=== PATIENT | female | born 1935 | race African-American/Black ===

== ENCOUNTER 2019-01-28 15:44 | Inpatient (IN) | payer MEDICARE ==
[~2019-01-28] VITALS: Ht 160 cm; Wt 82.8 kg
[~2019-01-28 15:44] MED LIST: AMLO5TAB15 PO; ASPI-264 PO; FURO40TA4 PO; GLYB5TAB8 PO; LEVO25TA6 PO; LOSA-39; LOVA40TA72 PO; METO-169; OMEP20CA74 PO; POTA-220; RAMI10CA38; TRAM50TA2
[2019-01-28 17:44] LABS: Basophils # (auto) 0.1 uL; Basophils % (auto) 2.4 % (0.0-2.0); Eosinophils # (auto) 0.1 uL; Eosinophils % (auto) 2.9 % (0.0-7.0); Hematocrit 37.9 % (36.0-46.0); Hemoglobin 12.6 g/dL (12.2-16.2); Lymphocytes # (auto) 1.1 uL; Lymphocytes % (auto) 27.1 % (10.0-50.0); Mean Corpuscular Hemoglobin 32.8 pg (28.0-32.0); Mean Corpuscular Hgb Conc. 33.1 g/dL (32.0-36.0); Mean Corpuscular Volume 99.1 fL (80.0-100.0); Monocytes # (auto) 0.6 uL; Neutrophils # (auto) 2.1 uL; Neutrophils % (auto) 51.6 % (37.0-80.0); Nucleated Red Blood Cells % 0.2 %; Platelet Count (auto) 158 10^3/uL (140-450); Red Blood Cells 3.83 10^6/uL (4.0-5.20); Red Cell Distribution Width 14.2 % (11.8-14.3)
[2019-01-28 17:56] LABS: Alanine Aminotransferase 15 U/L (13-56); Albumin 3.4 g/dL (3.4-5.0); Anion Gap 9 (5-15); Aspartate Aminotransferase 15 U/L (15-37); BUN/Creatinine Ratio 17.9; Blood Urea Nitrogen 35 mg/dL (7-18); Calcium 9.3 mg/dL (8.5-10.1); Carbon Dioxide 23 mmol/L (21-32); Chloride 108 mmol/L (98-107); GFR African American 32 mL/min; GFR Non-African American 26 mL/min; Glucose 83 mg/dL (74-106); Magnesium 2.5 mg/dL (1.6-2.6); Potassium 4.8 mmol/L (3.5-5.1); Sodium 140 mmol/L (136-145)
[2019-01-28 17:59] LABS: INR 1.01 (0.9-1.15); Partial Thromboplastin Time 24.8 sec (23.64-32.05)
[2019-01-28 18:01] LABS: Alkaline Phosphatase 98 U/L (45-117); Bilirubin, Total 0.6 mg/dL (0.2-1.0); Total Protein 7.6 g/dL (6.4-8.2)
[2019-01-28] MEDS ORDERED: ONDANSETRON HCL 4 MG/2 ML VIAL IV PRN (19:15)
[2019-01-28] MEDS ORDERED: ACETAMINOPHEN 500 MG TAB PO PRN (19:15)
[2019-01-28] MEDS ORDERED: TEMAZEPAM 15 MG CAP PO PRN (19:15)
[2019-01-28] MEDS ORDERED: DEXTROSE (50%) 50ML SYRG IV PRN (19:15)
[2019-01-28] MEDS ORDERED: LACTULOSE 20Gm/30ML SOLN PO PRN (19:15)
[2019-01-28] MEDS ORDERED: traMADol HCL 50 MG TAB PO PRN (19:15)
[2019-01-28] MEDS ORDERED: NITROGLYCERIN 0.4 MG SL TAB SL PRN (19:15)
[2019-01-28] MEDS ORDERED: MORPHINE SULF INJ 2 MG/ML SYRINGE 1ML IV PRN (19:15)
[2019-01-28 20:54] VITALS: BP 154/80
--- NOTE | 2019-01-28 20:54 | NUR ---
Telemetry admit from [facility] admitted to Telemetry unit after SBAR received. Patient oriented to Benjy Quevedo, primary RN, unit, room, bed, and unit policies regarding patient care and visiting hours. Patient now on continuous telemetry monitoring, tele box # [id number] and telemetry reading on arrival to unit is sinus rhythm. Patient placed on bedside oxygen, weighed by bedscale and encouraged to call if they need something. All questions and concerns addressed, patient verbalized understanding.
[2019-01-28] MEDS: ACCU-CHEK COMFORT CURVE STRIP VI SCH (21:32)
[2019-01-28] MEDS: InsuLIN REG 1unit/0.01ml Soln (100units/ml) SC SCH (21:32)
[2019-01-28 22:00] VITALS: BP 154/80
[2019-01-28 22:00] LABS: Urine Bacteria MANY /hpf (None Seen); Urine Blood TRACE /uL (Negative); Urine Hyaline Cast MANY /lpf (0 - 2); Urine Mucus FEW (None Seen); Urine Specific Gravity 1.022 (1.001-1.035); Urine WBC 449 /hpf (0 - 5); Urine WBC Clumps PRESENT /hpf (None Seen)
[2019-01-28] MEDS ORDERED: ATORVASTATIN 20 MG TAB PO SCH (22:00)
[2019-01-28] MEDS ORDERED: HYDR25TA4 PO (22:22)
[2019-01-28] MEDS ORDERED: ACET-1156 PO (22:22)
[2019-01-29] MEDS ORDERED: SPIR50TA5 PO (00:21)
[2019-01-29] MEDS ORDERED: MELO1TAB56 PO (00:21)
[2019-01-29 05:24] VITALS: BP 153/68
[2019-01-29] MEDS: ACCU-CHEK COMFORT CURVE STRIP VI SCH ×4 (06:43→22:00)
[2019-01-29] MEDS: InsuLIN REG 1unit/0.01ml Soln (100units/ml) SC SCH ×4 (06:44→22:00)
--- NOTE | 2019-01-29 07:20 | NUR ---
Patient stable, no complaints of pain. Endorsed care to Greer DERAS.
--- NOTE | 2019-01-29 08:34 | NUR ---
PT REPORTS SHE IS NOT EATING HER BREAKFAST. SHE REPORTS, "IT'S DISGUSTING." ASKED PATIENT WHAT SHE WOULD LIKE AN ALTERNATIVE, PT REPORTS SHE WANTS, "EGGS AND PIERRE OR SAUSAGE AND EGGS, SOMETHING WITH SOME MEAT OR I'M WALKING OUT OF HERE." CALLED FOOD AND NUTRITION AND LEFT MESSAGE, REPORTED PT WOULD LIKE ALTERNATE TRAY WITH EITHER PIERRE OR SAUSAGE AND EGGS, OR A HEALTHY ALTERNATIVE. WILL CONTINUE TO MONITOR.
[2019-01-29 09:00] VITALS: BP 138/86
[2019-01-29] MEDS: ASPirin 81 mg TAB PO SCH (09:47)
--- NOTE | 2019-01-29 09:51 | NUR ---
PT REFUSING MORNING MEDICATIONS AND ACCUCHECKS. PT REPORTS SHE IS NOT DIABETIC. PT REPORTS SHE WANTS HER HOME MEDICATIONS HERE IN THE HOSPITAL, NOT NEW MEDICATIONS. EDUCATED PT ON NEW MEDICATIONS AND THIER PURPOSE, PT REFUSED. PT WANTS TO CALL PCP AND ASK ABOUT NEW MEDICATIONS.
[2019-01-29] MEDS ORDERED: ENOXAPARIN SOD 30 MG/0.3 ML SYRINGE SC SCH (10:00)
[2019-01-29] MEDS ORDERED: PANTOPRAZOLE 40 MG TAB PO SCH (10:00)
--- NOTE | 2019-01-29 13:24 | NUR ---
DR HOLLOWAY SAW PATIENT AND DISCUSSED POC. WAITING ON CARDIO CONSULT. ASKED MEDIA CONSULTANT TO CALL IN CARDIO CONSULT, WILL CONTINUE TO MONITOR.
[2019-01-29 13:32] VITALS: BP 150/74
--- NOTE | 2019-01-29 17:00 | NUR ---
Pt reports she wants her blood pressure medications. Called PBX and paged Dr. Rolle to request medications. Awaiting call back. Pt irritated Metal Handler has not come yet, pt educated Metal Handler will be here today or tomorrow depending on how many patient's he has. Pt reports she will will walk out tomorrow morning if not seen by then.
--- NOTE | 2019-01-29 17:14 | NUR ---
PAGED HOSPITALIST TO REQUEST PT BPO MEDS, PAGED DR VEGA TO REQUEST HE SEE PATIENT. CHARGE NURSE NOTIFIED PT IS IRRITATED.
[2019-01-29] MEDS ORDERED: LOSARTAN POTASSIUM 50 MG TAB PO ONE (17:15)
[2019-01-29] MEDS: LEVOTHYROXINE SODIUM 25 MCG TAB PO ONE ×2 (17:15→17:46)
[2019-01-29] MEDS ORDERED: amLODIPine BESYLATE 5 MG TAB PO ONE (17:15)
--- NOTE | 2019-01-29 17:19 | NUR ---
DR VEGA CALLED BACK, HE REPORTS HE HAS A FEW MORE PATIENT'S BUT WILL TRY AND SEE PATIENT TONIGHT. DR HOLOLWAY PUT IN ORDERS FOR BP MEDS, PT NOTIFIED, WILL CONTINUE TO MONITOR.
[2019-01-29 17:34] VITALS: BP 134/81
--- NOTE | 2019-01-29 17:53 | NUR ---
PT REFUSED SYNTHROID, SHE REPORTS SHE IS ONLY SUPPOSED TO TAKE IT IN THE MORNING TIME.
--- NOTE | 2019-01-29 19:40 | NUR ---
Opening Shift Note Assumed care of patient, awake and alert. Son Lionel at bedside. Patient and family expressed irritation that manager placement has not seen patient yet. Dayshift pediatric acute care unit nurse Sheeba Vera at this time for update on when he is coming to see patient. Charge nurse Marisol DERAS made aware of patient and family's concerns at this time. No S/S of distress/SOB or pain. Instructed on POC and to call for assist PRN, will continue to monitor for changes Q1hr and PRN.
--- NOTE | 2019-01-29 19:48 | NUR ---
Spoke with Dr. Vera Received phone call from Dr. Vera. Doctor made aware of patient and family's concerns. Dr. Vera states he "will be there with the hour". Will inform patient and patient's family and continue to monitor.
--- NOTE | 2019-01-29 19:57 | NUR ---
Blood Pressure Reassessment Blood pressure 166/57. Patient just finished ambulating from bathroom to bed and is still agitated that cellophaner is not available at this time. Will continue to monitor.
--- NOTE | 2019-01-29 20:07 | NUR ---
Dr. Vera at bedside Esthetics Instructor at bedside to discuss plan of care with patient and family.
--- NOTE | 2019-01-29 20:44 | NUR ---
Medications From Nuclear Scientist Dr. Vera reviewed patient's home medications, new orders received for Amlodipine 5mg BID, Levothyroxine 50 mcg daily, Losartan 50 mg daily, Metoprolol Succinate 50 mg BID, Prilosec 40 mg BID, Spirolactone 25 mg daily, and Lovastatin [address] Vera did not want to continue Hydrochlorothiazide or Potassium at this time. Dr. Vera wanted all new orders to start tomorrow and requested to be called if patient's ystolic blood pressure is less than 110. Doctor also wanted CMP, informed that there were orders for BMP and CBC at 04:00, doctor stated, "Ok, that's fine." All orders read back and verified, will implement and continue to monitor patient.
--- NOTE | 2019-01-29 21:15 | NUR ---
Dr. Vera Paged Lovastatin not available, patient already has orders for Lipitor 10 mg. Will clarify with Dr. Vera and continue to monitor patient.
--- NOTE | 2019-01-29 21:19 | NUR ---
Dr. Vera returned call Received call from Dr. Vera, new order received for Lipitor 40 mg at hour of sleep. Order read back and verified, will implement and continue to monitor patient.
[2019-01-29 21:59] VITALS: BP 149/70
[2019-01-29] MEDS ORDERED: amLODIPine BESYLATE 5 MG TAB PO SCH (22:00)
[2019-01-29] MEDS ORDERED: ATORVASTATIN 20 MG TAB PO SCH (22:00)
[2019-01-30 05:00] VITALS: BP 149/73
[2019-01-30] MEDS: ACCU-CHEK COMFORT CURVE STRIP VI SCH ×2 (06:39→11:30)
[2019-01-30 06:49] LABS: Basophils # (auto) 0.1 uL; Basophils % (auto) 1.7 % (0.0-2.0); Eosinophils # (auto) 0.1 uL; Eosinophils % (auto) 3.4 % (0.0-7.0); Hematocrit 36.4 % (36.0-46.0); Hemoglobin 12.3 g/dL (12.2-16.2); Lymphocytes # (auto) 1.2 uL; Lymphocytes % (auto) 34.4 % (10.0-50.0); Mean Corpuscular Hgb Conc. 33.9 g/dL (32.0-36.0); Mean Corpuscular Volume 97.5 fL (80.0-100.0); Monocytes # (auto) 0.5 uL; Monocytes % (auto) 14.4 % (0.0-12.0); Neutrophils # (auto) 1.6 uL; Neutrophils % (auto) 46.1 % (37.0-80.0); Nucleated Red Blood Cells % 0.1 %; Platelet Count (auto) 143 10^3/uL (140-450); Red Blood Cells 3.74 10^6/uL (4.0-5.20); Red Cell Distribution Width 14.1 % (11.8-14.3); White Blood Cell 3.4 10^3/uL (4.4-10.8)
[2019-01-30 07:00] LABS: Calcium 9.4 mg/dL (8.5-10.1); Potassium 4.2 mmol/L (3.5-5.1)
[2019-01-30] MEDS ORDERED: LEVOTHYROXINE SODIUM 25 MCG TAB PO SCH (07:00)
[2019-01-30] MEDS: InsuLIN REG 1unit/0.01ml Soln (100units/ml) SC SCH ×2 (07:00→11:30)
[2019-01-30] MEDS ORDERED: LEVOTHYROXINE SODIUM 50 MCG TAB PO SCH (07:00)
--- NOTE | 2019-01-30 07:00 | NUR ---
Closing Note Patient lying in bed, awake and alert. No s/s of distress. Care endorsed to dayshift RN.
[2019-01-30 07:02] LABS: BUN/Creatinine Ratio 22.4
--- NOTE | 2019-01-30 07:40 | NUR ---
OPENING NOTE Assumed care of patient from NOC RN. Patient resting in bed with eyes closed, even rise and fall of chest noted. No S/S of distress/SOB or pain. Bed in lowest, locked position with side rails up x2. Fall precautions in place and call light within reach. Will continue to monitor for changes Q1hr and PRN.
[2019-01-30 09:00] VITALS: BP 136/78
[2019-01-30] MEDS ORDERED: amLODIPine BESYLATE 5 MG TAB PO SCH ×2 (10:00)
[2019-01-30] MEDS ORDERED: METOPROLOL SUCCINATE XL 50 MG TAB PO SCH (10:00)
[2019-01-30] MEDS ORDERED: LOSARTAN POTASSIUM 50 MG TAB PO SCH ×2 (10:00)
[2019-01-30] MEDS ORDERED: OMEPRAZOLE 20MG/10ML ORAL SUSP PO SCH (10:00)
[2019-01-30] MEDS ORDERED: SPIRONOLACTONE 25 MG TAB PO SCH (10:00)
[2019-01-30] MEDS: ASPirin 81 mg TAB PO SCH (11:01)
--- NOTE | 2019-01-30 11:50 | NUR ---
ACCUCHECK Patient refused accucheck, states "I'm not diabetic so there's no need for it".
--- NOTE | 2019-01-30 12:40 | NUR ---
AT BEDSIDE Dr. Covarrubias at patient's bedside.
--- NOTE | 2019-01-30 14:45 | NUR ---
DISCHARGE Discharge instructions given as ordered. Encouraged to follow up with PMD and Cardiology, Dr. Vera, as instructed. All questions and concerns addressed. Patient verbalized understanding. Medication reconciliation form completed and copy given to patient. . IV removed with catheter intact and pressure dressing applied. Telemetry unit returned to ICU. Patient ambulated to vehicle using FWW with all personal belongings, accompanied by family member. No distress noted at time of departure.
[2019-01-31] MEDS ORDERED: ENOXAPARIN SOD 40 MG/0.4 ML SYRINGE SC SCH (10:00)
== END 2019-01-30 14:45 | disposition home or self-care (01) | DRG 310 ==
LOC: ER 15:44 → TELE-WESTW 15:45
PROVIDERS: ADMIT Internal Medicine; ATTEND Internal Medicine Nephrology
DX: I49.5 Sick sinus syndrome (principal); I12.9 Hypertensive chronic kidney disease with stage 1 through stage 4 chronic kidney disease, or unspecified chronic kidney disease; N18.3 Chronic kidney disease, stage 3 (moderate); E11.22 Type 2 diabetes mellitus with diabetic chronic kidney disease; E03.9 Hypothyroidism, unspecified; R82.71 Bacteriuria; E78.5 Hyperlipidemia, unspecified; Z96.643 Presence of artificial hip joint, bilateral; Z96.651 Presence of right artificial knee joint; K57.90 Diverticulosis of intestine, part unspecified, without perforation or abscess without bleeding; M19.90 Unspecified osteoarthritis, unspecified site; Z90.710 Acquired absence of both cervix and uterus; Z87.442 Personal history of urinary calculi; Z90.49 Acquired absence of other specified parts of digestive tract; Z82.49 Family history of ischemic heart disease and other diseases of the circulatory system; Z98.49 Cataract extraction status, unspecified eye; Z79.899 Other long term (current) drug therapy
CPT/HCPCS: 36415; 71046; 80048; 80053; 81001; 82550; 82962; 83036; 83735; 83880; 84443; 84484; 85025; 85379; 85610; 85652; 85730; 86141; 93306; 99291; G0378

== ENCOUNTER 2020-09-10 06:49 | Inpatient (IN) | payer MEDICARE ==
[~2020-09-10] VITALS: Ht 160 cm; Wt 85.5 kg
[~2020-09-10 06:49] MED LIST changes: +ACET-1156 PO; +AMLO-489 PO; -AMLO5TAB15 PO; -ASPI-264 PO; -FURO40TA4 PO; -GLYB5TAB8 PO; +HYDR25TA4 PO; +MELO1TAB56 PO; -METO-169; +METO-289; -POTA-220; -RAMI10CA38; +SPIR50TA5 PO; -TRAM50TA2
[2020-09-10] MEDS ORDERED: SODIUM CHLORIDE 0.9% 1,000 ML IV ONE (07:30)
[2020-09-10] MEDS ORDERED: SODIUM CHLORIDE 0.9% 500 ML IVB ONE (07:30)
[2020-09-10 09:14] LABS: Basophils # (auto) 0 10 ^3/uL (0-0.2); Basophils % (auto) 0.8 % (0.0-2.0); Eosinophils # (auto) 0.1 10 ^3/uL (0-0.8); Eosinophils % (auto) 2.5 % (0.0-7.0); Hematocrit 36.1 % (36.0-46.0); Hemoglobin 11.9 g/dL (12.2-16.2); Lymphocytes # (auto) 1.1 10 ^3/uL (0.4-5.4); Lymphocytes % (auto) 21.3 % (10.0-50.0); Mean Corpuscular Hemoglobin 32.5 pg (28.0-32.0); Mean Corpuscular Volume 98.6 fL (80.0-100.0); Monocytes # (auto) 0.5 10 ^3/uL (0-1.3); Monocytes % (auto) 8.9 % (0.0-12.0); Neutrophils # (auto) 3.6 10 ^3/uL (1.6-8.6); Neutrophils % (auto) 66.5 % (37.0-80.0); Nucleated Red Blood Cells % 0.1 %; Platelet Count (auto) 176 10^3/uL (140-450); Red Blood Cells 3.66 10^6/uL (4.0-5.20); White Blood Cell 5.3 10^3/uL (4.4-10.8)
[2020-09-10 09:16] LABS: Urine Bacteria MOD /hpf (None Seen); Urine Blood Negative /uL (Negative); Urine Specific Gravity 1.012 (1.001-1.035); Urine WBC 16 /hpf (0 - 5)
[2020-09-10 09:35] LABS: Albumin 3.3 g/dL (3.4-5.0); Anion Gap 7 (5-15); Blood Urea Nitrogen 35 mg/dL (7-18); Calcium 9.2 mg/dL (8.5-10.1); Carbon Dioxide 21 mmol/L (21-32); Chloride 113 mmol/L (98-107); Glucose 125 mg/dL (74-106); Sodium 141 mmol/L (136-145)
[2020-09-10 09:38] LABS: Alanine Aminotransferase 15 U/L (13-56); Aspartate Aminotransferase 18 U/L (15-37); BUN/Creatinine Ratio 23.6; GFR African American 43 mL/min; GFR Non-African American 36 mL/min; Magnesium 2.6 mg/dL (1.6-2.6)
[2020-09-10 09:43] LABS: Alkaline Phosphatase 89 U/L (45-117); Bilirubin, Total 0.4 mg/dL (0.2-1.0); Total Protein 7.3 g/dL (6.4-8.2)
[2020-09-10] MEDS ORDERED: amLODIPine BESYLATE 5 MG TAB PO ONE (11:30)
[2020-09-10] MEDS ORDERED: LOSARTAN POTASSIUM 50 MG TAB PO ONE (11:30)
[2020-09-10] MEDS ORDERED: SPIRONOLACTONE 25 MG TAB PO ONE (11:30)
[2020-09-10] MEDS ORDERED: LEVOTHYROXINE SODIUM 25 MCG TAB PO ONE (11:30)
[2020-09-10] MEDS ORDERED: OME20T PO (11:34)
[2020-09-10] MEDS ORDERED: AMLO-496 PO (11:34)
[2020-09-10] MEDS ORDERED: ENOXAPARIN SOD 60 MG/0.6 ML SYRINGE SC ONE (12:00)
[2020-09-10] MEDS ORDERED: ACETAMINOPHEN 500 MG TAB PO PRN (12:45)
[2020-09-10] MEDS ORDERED: MORPHINE SULF INJ 2 MG/ML SYRINGE 1ML IV PRN (12:45)
[2020-09-10] MEDS ORDERED: NITROGLYCERIN 0.4 MG SL TAB SL PRN (12:45)
[2020-09-10] MEDS ORDERED: HYDROcodone-ACET 5/325MG TAB PO PRN (12:45)
[2020-09-10] MEDS: cefTRIAXone 1GM/50ML D5W 50 ML IV SCH (14:00)
[2020-09-10] MEDS: SODIUM CHLORIDE 0.9% 1,000 ML IV SCH (14:00)
[2020-09-10] MEDS: ENOXAPARIN SOD 80 MG/0.8ML SYRINGE SC SCH ×2 (14:15→22:33)
[2020-09-10 17:00] VITALS: BP 121/68
[2020-09-10 18:53] LABS: INR 1.08 (0.9-1.15); Partial Thromboplastin Time 27.9 sec (23.0-31.2)
[2020-09-10] MEDS ORDERED: METOPROLOL SUCCINATE XL 50 MG TAB PO ONE (21:00)
[2020-09-10 21:41] VITALS: BP 119/66
[2020-09-11] MEDS: SODIUM CHLORIDE 0.9% 1,000 ML IV SCH ×2 (02:05→06:23)
[2020-09-11 05:00] VITALS: BP 128/63
[2020-09-11 05:53] LABS: Basophils # (auto) 0.1 10 ^3/uL (0-0.2); Basophils % (auto) 1.2 % (0.0-2.0); Eosinophils # (auto) 0.2 10 ^3/uL (0-0.8); Eosinophils % (auto) 3.7 % (0.0-7.0); Hematocrit 33.2 % (36.0-46.0); Hemoglobin 11.1 g/dL (12.2-16.2); Lymphocytes # (auto) 1.8 10 ^3/uL (0.4-5.4); Lymphocytes % (auto) 35.7 % (10.0-50.0); Mean Corpuscular Hemoglobin 33.4 pg (28.0-32.0); Mean Corpuscular Hgb Conc. 33.5 g/dL (32.0-36.0); Mean Corpuscular Volume 99.6 fL (80.0-100.0); Monocytes # (auto) 0.5 10 ^3/uL (0-1.3); Monocytes % (auto) 9.2 % (0.0-12.0); Neutrophils # (auto) 2.6 10 ^3/uL (1.6-8.6); Neutrophils % (auto) 50.2 % (37.0-80.0); Nucleated Red Blood Cells % 0.1 %; Platelet Count (auto) 168 10^3/uL (140-450); Red Blood Cells 3.34 10^6/uL (4.0-5.20); Red Cell Distribution Width 14.2 % (11.8-14.3); White Blood Cell 5.1 10^3/uL (4.4-10.8)
[2020-09-11] MEDS: LEVOTHYROXINE SODIUM 25 MCG TAB PO SCH (06:15)
[2020-09-11 06:34] LABS: Calcium 8.7 mg/dL (8.5-10.1)
[2020-09-11 06:39] LABS: Potassium 6.1 mmol/L (3.5-5.1)
[2020-09-11 06:40] LABS: BUN/Creatinine Ratio 18.8
[2020-09-11] MEDS ORDERED: SODIUM ZIRCONIUM CYCL 10 GM PAK PO ONE (07:00)
[2020-09-11 09:00] VITALS: BP 146/74
[2020-09-11] MEDS: cefTRIAXone 1GM/50ML D5W 50 ML IV SCH (09:35)
[2020-09-11] MEDS: ENOXAPARIN SOD 80 MG/0.8ML SYRINGE SC SCH ×2 (09:36→21:17)
[2020-09-11] MEDS: amLODIPine BESYLATE 5 MG TAB PO SCH (09:37)
[2020-09-11] MEDS ORDERED: PANTOPRAZOLE 40 MG TAB PO SCH (10:00)
[2020-09-11 13:00] VITALS: BP 150/70
[2020-09-11] MEDS ORDERED: PANTOPRAZOLE 40 MG TAB PO ONE (14:00)
[2020-09-11 16:30] VITALS: BP 139/79
[2020-09-11] MEDS: ATORVASTATIN 20 MG TAB PO SCH (21:17)
[2020-09-11 22:00] VITALS: BP 134/73
[2020-09-11] MEDS ORDERED: ATORVASTATIN 20 MG TAB PO SCH (22:00)
[2020-09-11] MEDS ORDERED: METOPROLOL SUCCINATE XL 50 MG TAB PO SCH (22:00)
[2020-09-12] MEDS: SODIUM CHLORIDE 0.9% 1,000 ML IV SCH ×2 (03:39→18:05)
[2020-09-12 05:00] VITALS: BP 142/78
[2020-09-12 06:13] LABS: Eosinophils # (auto) 0.2 10 ^3/uL (0-0.8); Monocytes # (auto) 0.5 10 ^3/uL (0-1.3); Neutrophils # (auto) 2.6 10 ^3/uL (1.6-8.6); Platelet Count (auto) 179 10^3/uL (140-450); White Blood Cell 5.1 10^3/uL (4.4-10.8)
[2020-09-12 06:17] LABS: Basophils # (auto) 0 10 ^3/uL (0-0.2); Eosinophils % (auto) 4.3 % (0.0-7.0); Hemoglobin 11.3 g/dL (12.2-16.2); Lymphocytes # (auto) 1.7 10 ^3/uL (0.4-5.4); Lymphocytes % (auto) 34.4 % (10.0-50.0); Mean Corpuscular Hemoglobin 33.9 pg (28.0-32.0); Mean Corpuscular Hgb Conc. 34.3 g/dL (32.0-36.0); Mean Corpuscular Volume 98.8 fL (80.0-100.0); Monocytes % (auto) 9.5 % (0.0-12.0); Neutrophils % (auto) 50.8 % (37.0-80.0); Nucleated Red Blood Cells % 0.2 %; Red Blood Cells 3.34 10^6/uL (4.0-5.20)
[2020-09-12] MEDS: LEVOTHYROXINE SODIUM 25 MCG TAB PO SCH (06:22)
[2020-09-12 06:32] LABS: Potassium 4.8 mmol/L (3.5-5.1)
[2020-09-12 06:41] LABS: BUN/Creatinine Ratio 19.8; Calcium 9.1 mg/dL (8.5-10.1)
[2020-09-12 08:30] VITALS: BP 143/72
[2020-09-12] MEDS: ENOXAPARIN SOD 80 MG/0.8ML SYRINGE SC SCH ×2 (09:51→20:50)
[2020-09-12] MEDS: cefTRIAXone 1GM/50ML D5W 50 ML IV SCH (09:51)
[2020-09-12] MEDS: PANTOPRAZOLE 40 MG TAB PO SCH (09:51)
[2020-09-12] MEDS: amLODIPine BESYLATE 5 MG TAB PO SCH (09:52)
[2020-09-12 12:30] VITALS: BP 146/68
[2020-09-12] MEDS ORDERED: ACETAMINOPHEN 325 MG TAB PO ONE (16:15)
[2020-09-12 17:00] VITALS: BP 152/78
[2020-09-12] MEDS: ATORVASTATIN 20 MG TAB PO SCH (20:50)
[2020-09-12 22:13] VITALS: BP 140/73
[2020-09-12] MEDS: ACETAMINOPHEN 325 MG TAB PO PRN (22:31)
[2020-09-13 04:39] VITALS: BP 149/82
[2020-09-13] MEDS: LEVOTHYROXINE SODIUM 25 MCG TAB PO SCH (06:19)
[2020-09-13] MEDS: SODIUM CHLORIDE 0.9% 1,000 ML IV SCH ×2 (06:22→21:13)
[2020-09-13 07:48] LABS: BUN/Creatinine Ratio 14.3; Calcium 8.8 mg/dL (8.5-10.1); Potassium 4.4 mmol/L (3.5-5.1)
[2020-09-13 08:30] VITALS: BP 145/62
[2020-09-13] MEDS: cefTRIAXone 1GM/50ML D5W 50 ML IV SCH (09:30)
[2020-09-13] MEDS: amLODIPine BESYLATE 5 MG TAB PO SCH (09:33)
[2020-09-13] MEDS: PANTOPRAZOLE 40 MG TAB PO SCH (09:33)
[2020-09-13] MEDS: ENOXAPARIN SOD 80 MG/0.8ML SYRINGE SC SCH ×2 (09:33→21:13)
[2020-09-13] MEDS: ACETAMINOPHEN 325 MG TAB PO PRN ×3 (10:23→23:13)
[2020-09-13] MEDS ORDERED: traMADol HCL 50 MG TAB PO PRN (11:15)
[2020-09-13] MEDS ORDERED: traMADol HCL 50 MG TAB PO ONE (11:15)
[2020-09-13] MEDS ORDERED: MECLIZINE HCL 25 MG TAB PO PRN (11:15)
[2020-09-13] MEDS ORDERED: MECLIZINE HCL 25 MG TAB PO ONE (11:15)
[2020-09-13 12:30] VITALS: BP 144/85
[2020-09-13] MEDS: ONDANSETRON HCL 4 MG/2 ML VIAL IV PRN (14:15)
[2020-09-13 17:00] VITALS: BP 122/65
[2020-09-13 20:00] VITALS: BP 114/61
[2020-09-13] MEDS: ATORVASTATIN 20 MG TAB PO SCH (21:13)
[2020-09-13 21:38] VITALS: BP 114/61
[2020-09-14 05:00] VITALS: BP 147/70
[2020-09-14] MEDS: ACETAMINOPHEN 325 MG TAB PO PRN ×2 (05:40→23:25)
[2020-09-14] MEDS: LEVOTHYROXINE SODIUM 25 MCG TAB PO SCH (07:00)
[2020-09-14 07:08] LABS: Calcium 8.5 mg/dL (8.5-10.1); Potassium 5.2 mmol/L (3.5-5.1)
[2020-09-14 07:10] LABS: BUN/Creatinine Ratio 12.5
[2020-09-14] MEDS: cefTRIAXone 1GM/50ML D5W 50 ML IV SCH (08:27)
[2020-09-14 09:00] VITALS: BP 130/80
[2020-09-14] MEDS: SODIUM CHLORIDE 0.9% 1,000 ML IV SCH (11:26)
[2020-09-14] MEDS: amLODIPine BESYLATE 5 MG TAB PO SCH (11:26)
[2020-09-14] MEDS: PANTOPRAZOLE 40 MG TAB PO SCH (11:26)
[2020-09-14] MEDS: ENOXAPARIN SOD 80 MG/0.8ML SYRINGE SC SCH (11:26)
[2020-09-14] MEDS ORDERED: DOCUSATE SOD 100 MG CAP PO ONE (11:30)
[2020-09-14] MEDS ORDERED: LACTULOSE 20Gm/30ML SOLN PO ONE (11:30)
[2020-09-14] MEDS: ONDANSETRON HCL 4 MG/2 ML VIAL IV PRN (12:53)
[2020-09-14 13:00] VITALS: BP 144/72
[2020-09-14 17:00] VITALS: BP 102/68
[2020-09-14] MEDS: ATORVASTATIN 20 MG TAB PO SCH (21:42)
[2020-09-14] MEDS: APIXABAN 5 MG TAB PO SCH (21:42)
[2020-09-14 22:00] VITALS: BP 138/64
[2020-09-15 05:00] VITALS: BP 148/81
[2020-09-15] MEDS: LEVOTHYROXINE SODIUM 25 MCG TAB PO SCH (05:41)
[2020-09-15 06:19] LABS: Calcium 8.8 mg/dL (8.5-10.1)
[2020-09-15 06:22] LABS: BUN/Creatinine Ratio 11.1
[2020-09-15 08:38] VITALS: BP 141/77
[2020-09-15] MEDS: cefTRIAXone 1GM/50ML D5W 50 ML IV SCH (10:48)
[2020-09-15] MEDS: APIXABAN 5 MG TAB PO SCH ×2 (10:48→21:48)
[2020-09-15] MEDS: PANTOPRAZOLE 40 MG TAB PO SCH (10:49)
[2020-09-15] MEDS: amLODIPine BESYLATE 5 MG TAB PO SCH (10:49)
[2020-09-15 13:02] VITALS: BP 108/62
[2020-09-15] MEDS ORDERED: LACTULOSE 20Gm/30ML SOLN PO ONE (13:45)
[2020-09-15] MEDS ORDERED: DOCUSATE SOD 100 MG CAP PO ONE (13:45)
[2020-09-15 17:00] VITALS: BP 125/67
[2020-09-15] MEDS: ATORVASTATIN 20 MG TAB PO SCH (21:48)
[2020-09-15 22:00] VITALS: BP 114/63
[2020-09-16 05:00] VITALS: BP 115/57
[2020-09-16] MEDS: LEVOTHYROXINE SODIUM 25 MCG TAB PO SCH (06:47)
[2020-09-16 09:00] VITALS: BP 138/72
[2020-09-16] MEDS ORDERED: levoFLOXacin 250 MG TAB PO SCH (10:00)
[2020-09-16] MEDS: amLODIPine BESYLATE 5 MG TAB PO SCH (10:05)
[2020-09-16] MEDS: APIXABAN 5 MG TAB PO SCH (10:05)
[2020-09-16] MEDS: PANTOPRAZOLE 40 MG TAB PO SCH (10:06)
[2020-09-16 13:00] VITALS: BP 119/62
[2020-09-21] MEDS ORDERED: APIXABAN 5 MG TAB PO SCH (22:00)
== END 2020-09-16 14:05 | disposition home or self-care (01) | DRG 175 ==
LOC: EDBD 06:49 → ER 06:49 → TELE 06:50 → TELE-WESTW 16:46
PROVIDERS: ADMIT Nurse Practitioner Acute Care; ATTEND Internal Medicine
DX: I26.99 Other pulmonary embolism without acute cor pulmonale (principal); N17.0 Acute kidney failure with tubular necrosis; E44.1 Mild protein-calorie malnutrition; R55 Syncope and collapse; K44.9 Diaphragmatic hernia without obstruction or gangrene; N30.90 Cystitis, unspecified without hematuria; E86.0 Dehydration; E66.9 Obesity, unspecified; N18.32 Chronic kidney disease, stage 3b; M19.90 Unspecified osteoarthritis, unspecified site; I12.9 Hypertensive chronic kidney disease with stage 1 through stage 4 chronic kidney disease, or unspecified chronic kidney disease; E03.9 Hypothyroidism, unspecified; R00.1 Bradycardia, unspecified; E78.5 Hyperlipidemia, unspecified; Z20.822 Contact with and (suspected) exposure to COVID-19; Z68.32 Body mass index [BMI] 32.0-32.9, adult; Z96.649 Presence of unspecified artificial hip joint; Z96.651 Presence of right artificial knee joint; E11.21 Type 2 diabetes mellitus with diabetic nephropathy; B96.1 Klebsiella pneumoniae [K. pneumoniae] as the cause of diseases classified elsewhere; E11.22 Type 2 diabetes mellitus with diabetic chronic kidney disease; E87.5 Hyperkalemia; K21.9 Gastro-esophageal reflux disease without esophagitis; Z79.899 Other long term (current) drug therapy; Z82.49 Family history of ischemic heart disease and other diseases of the circulatory system; Z87.442 Personal history of urinary calculi; Z90.710 Acquired absence of both cervix and uterus; Z88.5 Allergy status to narcotic agent
CPT/HCPCS: 36415; 70450; 71045; 73501; 78582; 80048; 80053; 81001; 83735; 84132; 84443; 84484; 85025; 85379; 85610; 85730; 87086; 87088; 87186; 87426; 93005; 93970; 96360; 96361; 97110; 97116; 97163; 97530; G0378; J0696; J2405